=== PATIENT | female | born 1955 | race Caucasian/White ===

== ENCOUNTER 2022-04-24 10:41 | Outpatient (CLI) | payer BC ==
[2022-04-24 18:45] LABS: SARS-CoV-2 PCR by NAA Not Detected (NotDetected)
== END 2022-04-24 10:42 | disposition home or self-care (01) ==
LOC: CSHLAB 10:41
PROVIDERS: ATTEND Urology
DX: Z20.822 Contact with and (suspected) exposure to COVID-19 (principal); Z12.11 Encounter for screening for malignant neoplasm of colon
CPT/HCPCS: U0003; U0005

== ENCOUNTER 2022-04-26 05:57 | Day surgery (SDC) | payer BC ==
[2022-04-25 09:37] VITALS: BMI 21.4
[2022-04-26] MEDS ORDERED: Lidocaine 1% MPF 2 ML VIAL ONE (06:46)
[2022-04-26] MEDS ORDERED: PROPOFOL 40 ML ONE (06:56)
[2022-04-26] MEDS ORDERED: Lidocaine 1% PF 5 ML VIAL ONE (06:57)
[2022-04-26] MEDS ORDERED: PROPOFOL 20 ML ONE (08:04)
== END 2022-04-26 09:05 | disposition home or self-care (01) ==
LOC: CSHSDC 05:57
PROVIDERS: ATTEND Urology
PROC: 0DBH8ZX Excision of Cecum, Via Natural or Artificial Opening Endoscopic, Diagnostic (ICD-10-PCS; principal; 2022-04-26)
DX: Z12.11 Encounter for screening for malignant neoplasm of colon (principal); D12.0 Benign neoplasm of cecum; K57.30 Diverticulosis of large intestine without perforation or abscess without bleeding; K62.89 Other specified diseases of anus and rectum; Q43.8 Other specified congenital malformations of intestine
CPT/HCPCS: 88305; J2704